=== PATIENT | female | born 2000 | race Caucasian/White ===

== ENCOUNTER → 2024-08-12 10:52 | Outpatient (REF) | payer OTHER, SELFPAY | LOC: PNTC 10:52 | PROVIDERS: ATTENDING PHYSICIAN Obstetrics & Gynecology | DX: Z36.3 Encounter for antenatal screening for malformations (principal); O09.33 Supervision of pregnancy with insufficient antenatal care, third trimester | CPT/HCPCS: 76805 ==

== ENCOUNTER 2024-09-08 19:24 | Inpatient (IN) | payer OTHER, SELFPAY ==
[2024-09-08 19:39] VITALS: BP 117/72; BMI 36.1
[2024-09-08 20:44] LABS: % Basophils 0.3 % (0-2); % Eosinophils 0.4 % (0-6); % Immature Granulocytes 0.6 % (0-0.5); % Lymphocytes 15.3 % (20.5-51.1); % Monocytes 5.4 % (1.7-9.3); Absolute Immature Granulocytes 0.1 10^3/uL (0-0.05); Absolute Lymphocytes 1.7 10^3/uL (1.2-3.4); Absolute Monocytes 0.6 10^3/uL (0.1-0.6); Absolute Neutrophils 8.6 10^3/uL (1.4-6.5); Hematocrit 32.6 % (37.0-47.0); Hemoglobin 10.7 g/dL (12.0-16.0); Mean Corp Hgb Conc. 32.8 g/dL (33.0-37.0); Mean Corpuscular Hgb 26.3 pg (27.0-31.0); Mean Corpuscular Volume 80.1 fL (81.0-99.0); Mean Platelet Volume 11.9 fL (7.4-10.4); Nucleated Red Blood Cells % 0 %; Platelet Count 257 10^3/uL (130-400); Red Blood Cell Count 4.07 10^6/uL (4.20-5.40); Red Cell Dist. Width 14.7 % (11.5-14.5)
[2024-09-08] MEDS: CYTOTEC 25 MICROGRAM VAG (22:05)
[2024-09-09] MEDS: LR 1000 IV ×2 (02:39→05:17)
[2024-09-09] MEDS: STADOL 1 MG IV (02:39)
[2024-09-09] MEDS: FENTANYL/BUPIVACAINE 100 EPIDURAL (04:43)
[2024-09-09] MEDS: SUBLIMAZE 100 MCG EPIDURAL (04:43)
[2024-09-09] MEDS: TYLENOL 650 MG PO ×2 (15:55→21:58)
[2024-09-09] MEDS: MOTRIN 600 MG PO ×2 (15:55→21:59)
[2024-09-10 05:01] LABS: Hematocrit 27.4 % (37.0-47.0); Hemoglobin 8.9 g/dL (12.0-16.0)
[2024-09-10] MEDS: SENOKOT-S 1 TABLET PO (07:54)
[2024-09-10] MEDS: MOTRIN 600 MG PO ×2 (07:54→16:43)
[2024-09-10] MEDS: PRENATAL PLUS 1 TABLET PO (07:54)
[2024-09-10] MEDS: FEOSOL 325 MG PO (07:54)
[2024-09-10] MEDS: TYLENOL 650 MG PO ×2 (07:55→16:43)
--- NOTE | 2024-09-10 13:16 | CM ---
Addendum entered by Beatrice Adames 09/10/24 15:17:
Breast pump Rx sent to [facility] via
Original Note:
Met with new parents Jessica and Alonso at moms bedside
Mom reports she lives in a 2 story home, at listed address, with her parents and 2 siblings
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
Family and FOB supportive/involved
Parents have named their Samantha Gaitan
Mom reports she was late to start care as she didn't realize she was ; she did seek care when she was aware of
Mom reports she has supplies for including car seat and crib
Plans to breast feed - will order breast pump
Parents in process of deciding on peds for
Mom to follow up with [facility]
Will refer to [facility]N program - mom receptive
Plan - Breast pump to be ordered; referral to VN program through [facility] program
[2024-09-11] MEDS: PRENATAL PLUS 1 TABLET PO (08:24)
[2024-09-11] MEDS: FEOSOL 325 MG PO (08:24)
[2024-09-11] MEDS: MOTRIN 600 MG PO (08:24)
[2024-09-11] MEDS: SENOKOT-S 1 TABLET PO (08:24)
--- NOTE | 2024-09-11 10:19 | CM ---
Confirmed with Jeniffer at [facility] - breast pump to be delivered today
Referred to [facility] program through [facility]
[2024-09-12 15:52] LABS: Syphilis/T. pallidum Ab Reflex Negative (Negative)
== END 2024-09-11 13:10 | disposition home or self-care (01) | DRG 807 ==
LOC: LDRP 19:24
PROVIDERS: Student in an Organized Health Care Education/Training Program; ADMITTING PHYSICIAN Obstetrics & Gynecology
PROC: 3E0P7VZ Introduction of Hormone into Female Reproductive, Via Natural or Artificial Opening (ICD-10-PCS; 2024-09-08)
PROC: 10E0XZZ Delivery of Products of Conception, External Approach (ICD-10-PCS; 2024-09-09)
PROC: 0KQM0ZZ Repair Perineum Muscle, Open Approach (ICD-10-PCS; 2024-09-09)
DX: O48.0 Post-term pregnancy (principal); Z37.0 Single live birth; Z3A.41 41 weeks gestation of pregnancy; O76 Abnormality in fetal heart rate and rhythm complicating labor and delivery; O70.1 Second degree perineal laceration during delivery
CPT/HCPCS: 85014; 85018; 85025; 86780; 86850; 86900; 86901